=== PATIENT | male | born 1950 | race Caucasian/White ===

== ENCOUNTER → 2016-09-08 | Outpatient (CLI) | payer MEDICAID | LOC: FIMAGING 14:18 | PROVIDERS: ATTEND Internal Medicine Nephrology | DX: N28.1 Cyst of kidney, acquired (principal); I10 Essential (primary) hypertension ==

== ENCOUNTER 2018-04-08 10:39 | Observation (INO) | payer OTHER ==
[2018-04-08 11:02] LABS: PLATELET COUNT 296 10^3/uL (150-400)
--- NOTE | 2018-04-08 12:04 | EDPHY ---
H & P Stated Complaint: cp Time Seen by Provider: 04/08/18 11:24 HPI/ROS: CHIEF COMPLAINT: Chest pain HISTORY OF PRESENT ILLNESS: 68-year-old male with hypertension presents with chest pain and shortness of breath. Onset intermittent chest pain 6 weeks ago. He was seen at [facility] and had a high calcium score. Plan for stress test, not performed yet. Over the past week, he has had increasing exertional shortness of breath, associated with excessive fatigue. This morning he had exertional shortness of breath, associated with chest fullness and lightheadedness. The chest fullness lasted approximately 30 min and then completely resolved. He is currently asymptomatic. Took an aspirin today. REVIEW OF SYSTEMS: complete 10 point ROS reviewed and is negative except for the noted elements in the HPI - Personal History Current Tetanus Diphtheria and Acellular Pertussis (TDAP): Yes - Medical/Surgical History Hx Asthma: No Hx Chronic Respiratory Disease: No Hx Diabetes: No Hx Cardiac Disease: No Hx Renal Disease: No Hx Cirrhosis: No Hx Alcoholism: No Hx HIV/AIDS: No Hx Splenectomy or Spleen Trauma: No Other PMH: HTN - Social History Smoking Status: Never smoked Alcohol Use: Sober Drug Use: None - Physical Exam Exam: General Appearance: Alert, pleasant Eyes: Pupils equal and round, no conjunctival pallor or injection ENT, Mouth: Mucous membranes moist Neck: Normal inspection Respiratory: Lungs are clear to auscultation Cardiovascular: Regular rate and rhythm Gastrointestinal: Abdomen is soft and nontender Neurological: A&O, nonfocal exam Skin: Warm and dry, no rash Extremities: Nontender, no pedal edema Psychiatric: Mood and affect normal Constitutional: Initial Vital Signs Temperature (C) 36.8 C 04/08/18 11:01 Heart Rate 79 04/08/18 11:01 Respiratory Rate 16 04/08/18 11:01 Blood Pressure 164/94 H 04/08/18 11:01 O2 Sat (%) 93 04/08/18 11:01 O2 Delivery Mode Room Air Allergies/Adverse Reactions: No Known Drug Allergies Allergy (Verified 04/08/18 10:59) Home Medications: Medication Instructions Recorded Cholecalciferol Vit D3 [Vitamin D3 1,000 units PO DAILY 04/08/18 (*)] Sher[place]-3 Fatty Acids [Fish Oil 1000 2,000 mg PO DAILY 04/08/18 mg (*)] Valsartan/Hydrochlorothiazide 1 each PO DAILY 04/08/18 [Valsartan-Hctz 160-12.5 mg Tab] Apixaban [Eliquis] 5 mg PO BID 30 Days #60 tab 04/09/18 Apixaban [Eliquis] 10 mg PO BID 7 Days #14 tab 04/09/18 Medical Decision Making - Diagnostics EKG Interpretation: EKG interpreted by me reveals normal sinus rhythm, rate 79, low voltage in the anterior leads. Interpretation: Otherwise normal EKG Imaging Results: Chest x-ray independently reviewed by me reveals no acute disease. Imaging: I viewed and interpreted images myself ED Course/Re-evaluation: This patient presents with exertional shortness of breath and intermittent chest pain. Stat EKG reveals no evidence of ischemia or dysrhythmia and initial troponin is normal. Chest x-ray is unremarkable. Patient was asymptomatic throughout his emergency department stay. Given progressive symptoms suggestive of acute coronary syndrome, will admit for further cardiac evaluation. The hospitalist service was consulted for admission. Differential Diagnosis: Differential diagnosis includes though it is not limited to pneumonia, pneumothorax, pulmonary embolism, aortic dissection, pericarditis, acute coronary syndrome. - Data Points Laboratory Results: Laboratory Results 04/08/18 10:40 04/08/18 10:40 Medications Given: Discontinued Medications Acetaminophen (Tylenol) 650 mg PO Q4HRS PRN PRN Reason: Pain, Mild/Fever, Can Take PO Stop: 10/05/18 12:42 Last Admin: 04/08/18 22:28 Dose: 650 mg Enoxaparin Sodium (Lovenox) 100 mg SC BID [facility] Stop: 10/06/18 14:18 Last Admin: 04/09/18 15:35 Dose: 100 mg Hydrochlorothiazide (Microzide) 12.5 mg PO DAILY K[facility]LA Stop: 10/05/18 15:44 Last Admin: 04/09/18 08:59 Dose: 12.5 mg Valsartan (Diovan) 160 mg PO DAILY KARLA Stop: 10/05/18 15:44 Last Admin: 04/09/18 08:59 Dose: 160 mg Point of Care Test Results: Chemistry 04/08/18 10:54 POC Troponin I 0.01 ng/mL ng/mL (0.00-0.08) Departure - Departure Disposition: [facility] Inpatient Acute Clinical Impression: Chest pain Qualifiers: Chest pain type: precordial pain Qualified Code(s): R07.2 - Precordial pain Condition: Good
[2018-04-08] MEDS ORDERED: ACETAMINOPHEN 325 MG TAB PO PRN (12:43)
[2018-04-08] MEDS ORDERED: ONDANSETRON DISINTEGRATING 4 MG TAB PO PRN (12:43)
[2018-04-08] MEDS ORDERED: ONDANSETRON 4 MG/2 ML VIAL IVP PRN (12:43)
--- NOTE | 2018-04-08 13:27 | PDGENHP ---
<Ailin Queen - Last Filed: 04/08/18 13:53> History and Physical - Chief Complaint Chest pain, exertional shortness of breath - History of Present Illness This is a 68 y/o male with history of hypertension presenting with intermittent left sided chest pains and exertional shortness of breath. Onset was 6 weeks ago. Chest pain spontaneously comes and goes, doesn't matter whether he is at rest or exertional. Nothing alleviates it nor aggravates it. Chest pain is described as "heart beats hard" and on some occasions, would radiate to his left arm with a tingling sensation. He has also experienced left sided neck soreness after episodes. The maximum amount of time the chest pains last is 30 minutes. Last week, he noticed he has become short of breath with exertion such as climbing up stairs. Resting alleviates this. He feels weak and lightheaded during this time. Denies nausea, vomiting, diaphoresis. Mid-February 2018, He followed up with his PCP Dr. Peoples re: these conditions. He had an EBT heart scan performed which revealed a high calcium score of 875.24 (LMCA:0, LAD: 473.63, Cx: 172.12, RCA: 229.49) which places him in the 75th-90th percentile for men within in his age group. Dr. Peoples wanted a stress test performed and it was scheduled for last however last Sunday , the pt went to [facility] because he awoke with chest pains. Initial testing at the facility were unremarkable and was discharged home. The pt currently does not have active chest pain nor is short of breath. He is being admitted for observation and further diagnostic work-up. Past Medical/Surgical History 1. Hypertension 2. Right bicep tendon rupture 3. Left achilles tendon rupture Social 1. Gaitan 2. Denies smoking tobacco however as a child was around his stepfather who did. Stepfather young from myocardial infarction. 3. Drinks approximately 10 beers/week. Smokes cannabis 2-3x/week. 4. Diet consists of red meat and potatoes. History Information - Allergies/Home Medication List Allergies/Adverse Reactions: No Known Drug Allergies Allergy (Verified 04/08/18 10:59) Home Medications: Aspirin EC [Aspirin EC 81 mg (*)] 81 mg PO DAILY 04/08/18 [Last Taken 04/08/18 06:30 325mg] Cholecalciferol Vit D3 [Vitamin D3 (*)] 1,000 units PO DAILY 04/08/18 [Last Taken 04/07/18] Herbals/Supplements -Info Only 1 ea PO DAILY 04/08/18 [Last Taken Unknown] [place]-3 Fatty Acids [Fish Oil 1000 mg (*)] 2,000 mg PO DAILY 04/08/18 [Last Taken 04/07/18] Valsartan/Hydrochlorothiazide [Valsartan-Hctz 160-12.5 mg Tab] 1 each PO DAILY 04/08/18 [Last Taken 04/08/18 06:30] I have personally reviewed and updated: family history, medical history, social history, surgical history Past Medical History: See HPI list - Surgical History Additional surgical history: See HPI list - Family History Additional family history: HTN, alzheimer's, A-fib, diabetes - Social History Smoking Status: Never smoked Alcohol Use: Occasionally Drug Use: Marijuana Review of Systems Review of Systems: ROS: 10pt was reviewed & negative except for what was stated in HPI & below Constitutional: Reports: weakness EENMT: Reports: no symptoms Cardiac: Reports: chest pain, lightheadedness Respiratory: Reports: shortness of breath Gastrointestinal: Reports: no symptoms Genitourinary: Reports: no symptoms Muscolosketal: Reports: neck pain Skin: Reports: no symptoms Neurological: Reports: no symptoms Hematologic/Lymphatic: Reports: blood clots Immunologic/Allergy: Reports: no symptoms Physical Exam Physical Exam: Lab data and imaging reviewed Temp Pulse Resp BP Pulse Ox 36.8 C 79 16 129/85 H 95 04/08/18 11:01 04/08/18 12:46 04/08/18 12:46 04/08/18 12:46 04/08/18 12:46 Constitutional: no apparent distress, appears nourished, not in pain Eyes: PERRL, anicteric sclera, EOMI Ears, Nose, Mouth, Throat: moist mucous membranes, hearing normal, ears appear normal, no oral mucosal ulcers Cardiovascular: regular rate and rhythym, no murmur, rub, or gallop, No edema Peripheral Pulses: 2+: dorsalis-pedis (R) (Radial 2+), dorsalis-pedis (L) ( Radial 2+) Respiratory: no respiratory distress, no rales or rhonchi, clear to auscultation Gastrointestinal: normoactive bowel sounds, soft, non-tender abdomen, no palpable masses Genitourinary: no bladder fullness, no bladder tenderness Skin: warm, normal color, no rashes or abrasions, no fluctuance, no induration, other (Noted: 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 Not painful to touch. He is planning to get consultation on next steps for removal in May. He doesn't think this is cancerous.), No mottled Musculoskeletal: full muscle strength, no muscle tenderness, normal joint ROM, no joint effusions Neurologic: AAOx3, sensation intact bilaterally, CN II-XII Intact Psychiatric: interacting appropriately, not anxious, not encephalopathic, thought process linear Lymph, Heme, Immunologic: no cervical LAD, no supraclavicular LAD Lab Data & Imaging Review 04/08/18 10:40 04/08/18 10:40 WBC 5.87 10^3/uL (3.80-9.50) 04/08/18 10:40 RBC 5.54 10^6/uL (4.40-6.38) 04/08/18 10:40 Hgb 15.9 g/dL (13.7-17.5) 04/08/18 10:40 Hct 48.4 % (40.0-51.0) 04/08/18 10:40 MCV 87.4 fL (81.5-99.8) 04/08/18 10:40 MCH 28.7 pg (27.9-34.1) 04/08/18 10:40 MCHC 32.9 g/dL (32.4-36.7) 04/08/18 10:40 RDW 12.6 % (11.5-15.2) 04/08/18 10:40 Plt Count 296 10^3/uL (150-400) 04/08/18 10:40 MPV 9.7 fL (8.7-11.7) 04/08/18 10:40 Neut % (Auto) 63.7 % (39.3-74.2) 04/08/18 10:40 Lymph % (Auto) 26.2 % (15.0-45.0) 04/08/18 10:40 Rhea % (Auto) 7.7 % (4.5-13.0) 04/08/18 10:40 Eos % (Auto) 1.9 % (0.6-7.6) 04/08/18 10:40 Baso % (Auto) 0.3 % (0.3-1.7) 04/08/18 10:40 Nucleat RBC Rel Count 0.0 % (0.0-0.2) 04/08/18 10:40 Absolute Neuts (auto) 3.74 10^3/uL (1.70-6.50) 04/08/18 10:40 Absolute Lymphs (auto) 1.54 10^3/uL (1.00-3.00) 04/08/18 10:40 Absolute Monos (auto) 0.45 10^3/uL (0.30-0.80) 04/08/18 10:40 Absolute Eos (auto) 0.11 10^3/uL (0.03-0.40) 04/08/18 10:40 Absolute Basos (auto) 0.02 10^3/uL (0.02-0.10) 04/08/18 10:40 Absolute Nucleated RBC 0.00 10^3/uL (0-0.01) 04/08/18 10:40 Immature Gran % 0.2 % (0.0-1.1) 04/08/18 10:40 Immature Gran # 0.01 10^3/uL (0.00-0.10) 04/08/18 10:40 D-Dimer 0.58 ug/mLFEU (0.00-0.50) H 04/08/18 10:40 Sodium 140 mEq/L (135-145) 04/08/18 10:40 Potassium 4.0 mEq/L (3.5-5.2) 04/08/18 10:40 Chloride 104 mEq/L (97-110) 04/08/18 10:40 Carbon Dioxide 27 mEq/l (22-31) 04/08/18 10:40 Anion Gap 9 mEq/L (6-14) 04/08/18 10:40 BUN 17 mg/dL (7-23) 04/08/18 10:40 Creatinine 1.2 mg/dL (0.7-1.3) 04/08/18 10:40 Estimated GFR > 60 04/08/18 10:40 Glucose 112 mg/dL (70-100) H 04/08/18 10:40 Calcium 9.3 mg/dL (8.5-10.4) 04/08/18 10:40 POC Troponin I 0.01 ng/mL (0.00-0.08) 04/08/18 10:54 NT-Pro-B Natriuret Pep 116 pg/mL (0-125) 04/08/18 10:40 Assessment & Plan Plan: This is a 68 y/o male with history of hypertension presenting with 6 weeks worth of intermittent chest pains and exertional shortness of breath. Today he took ASA 325 mg and has no complaints of active chest pains or shortness of breath. EKG was sinus rhythm and CXR unremarkable. D-dimer mildly elevated ( 0.58), initial troponin negative (0.01) and BNP within normal range (116). 1. Chest pains: The pt receives a heart score of 6 (highly suspicious, his age is over 65 y/o, hx of atherosclerotic disease). He has a high calcium score. He was originally scheduled for a stress test outpatient. He is at higher risk for ACS d/t his weight, age, sedentary lifestyle, dietary choices, calcium score. -Cont tele monitoring -Cycle trops -EKG Q6H x 1, then PRN -Echo complete pending -Lipid panel tomorrow -Lexiscan tomorrow morning; d/t to his exertional shortness of breath, I do not believe he would be the best candidate for a treadmill stress test. He would not be able to complete the testing in its entirety. Avoid caffeine Q12H before testing. 2. Exertional shortness of breath: see above 3. Hypertension: stable. He may continue his home medications of HCTZ, valsartan Diet: Cardiac VTE ppx: SCDs Code: Full Dispo: Admit to obs <Inocencio Witt - Last Filed: 04/08/18 20:46> History and Physical - History of Present Illness Review of Systems Review of Systems: Physical Exam Physical Exam: Temp Pulse Resp BP Pulse Ox 36.7 C 87 18 143/78 H 94 04/08/18 15:38 04/08/18 15:38 04/08/18 15:38 04/08/18 15:38 04/08/18 15:38 Lab Data & Imaging Review 04/08/18 10:40 04/08/18 10:40 WBC 5.87 10^3/uL (3.80-9.50) 04/08/18 10:40 RBC 5.54 10^6/uL (4.40-6.38) 04/08/18 10:40 Hgb 15.9 g/dL (13.7-17.5) 04/08/18 10:40 Hct 48.4 % (40.0-51.0) 04/08/18 10:40 MCV 87.4 fL (81.5-99.8) 04/08/18 10:40 MCH 28.7 pg (27.9-34.1) 04/08/18 10:40 MCHC 32.9 g/dL (32.4-36.7) 04/08/18 10:40 RDW 12.6 % (11.5-15.2) 04/08/18 10:40 Plt Count 296 10^3/uL (150-400) 04/08/18 10:40 MPV 9.7 fL (8.7-11.7) 04/08/18 10:40 Neut % (Auto) 63.7 % (39.3-74.2) 04/08/18 10:40 Lymph % (Auto) 26.2 % (15.0-45.0) 04/08/18 10:40 Rhea % (Auto) 7.7 % (4.5-13.0) 04/08/18 10:40 Eos % (Auto) 1.9 % (0.6-7.6) 04/08/18 10:40 Baso % (Auto) 0.3 % (0.3-1.7) 04/08/18 10:40 Nucleat RBC Rel Count 0.0 % (0.0-0.2) 04/08/18 10:40 Absolute Neuts (auto) 3.74 10^3/uL (1.70-6.50) 04/08/18 10:40 Absolute Lymphs (auto) 1.54 10^3/uL (1.00-3.00) 04/08/18 10:40 Absolute Monos (auto) 0.45 10^3/uL (0.30-0.80) 04/08/18 10:40 Absolute Eos (auto) 0.11 10^3/uL (0.03-0.40) 04/08/18 10:40 Absolute Basos (auto) 0.02 10^3/uL (0.02-0.10) 04/08/18 10:40 Absolute Nucleated RBC 0.00 10^3/uL (0-0.01) 04/08/18 10:40 Immature Gran % 0.2 % (0.0-1.1) 04/08/18 10:40 Immature Gran # 0.01 10^3/uL (0.00-0.10) 04/08/18 10:40 D-Dimer 0.58 ug/mLFEU (0.00-0.50) H 04/08/18 10:40 Sodium 140 mEq/L (135-145) 04/08/18 10:40 Potassium 4.0 mEq/L (3.5-5.2) 04/08/18 10:40 Chloride 104 mEq/L (97-110) 04/08/18 10:40 Carbon Dioxide 27 mEq/l (22-31) 04/08/18 10:40 Anion Gap 9 mEq/L (6-14) 04/08/18 10:40 BUN 17 mg/dL (7-23) 04/08/18 10:40 Creatinine 1.2 mg/dL (0.7-1.3) 04/08/18 10:40 Estimated GFR > 60 04/08/18 10:40 Glucose 112 mg/dL (70-100) H 04/08/18 10:40 Calcium 9.3 mg/dL (8.5-10.4) 04/08/18 10:40 POC Troponin I 0.01 ng/mL (0.00-0.08) 04/08/18 10:54 Troponin I < 0.012 ng/mL (0.000-0.034) 04/08/18 10:40 NT-Pro-B Natriuret Pep 116 pg/mL (0-125) 04/08/18 10:40 Assessment & Plan Plan: Briefly, Mr. Jones is a 68 year old healthy male admitted with chest pain. ECG and troponins negative. He does have a elevated heart score. He denied any shortness of breath, new leg swelling or edema. 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 Plan to cycle troponins, Obtain lexiscan in am, and obtain lower extremity us to ensure no new DVT. Examination is essentially unremarkable. Other issues per HUMAN GEOGRAPHY INSTRUCTOR Green. Inocencio Witt MD
--- NOTE | 2018-04-08 15:40 | CPEKG ---
Test Reason : OPEN Blood Pressure : / mmHG Vent. Rate : 079 BPM Atrial Rate : 079 BPM P-R Int : 136 ms QRS Dur : 089 ms QT Int : 360 ms P-R-T Axes : 025 -02 023 degrees QTc Int : 413 ms Sinus rhythm Low voltage, precordial leads Confirmed by Nancy Noguera ([id number]) on 04/08/2018 3:39:39 PM Referred By: Confirmed By:Nancy Noguera
[2018-04-08] MEDS: VALSARTAN 160 MG TAB PO SCH (16:47)
[2018-04-08] MEDS: HYDROCHLOROTHIAZIDE 12.5 MG CAP PO SCH (16:47)
--- NOTE | 2018-04-08 17:09 | ECHO ---
[email or web address] [address] [address] Main: [phone] Fax: Transthoracic Echocardiogram Name: DAVID RICCI MR#: [id number] Study Date: 04/08/2018 Study Time: 03:56 PM Date of : 1950 Age: 68 year(s) Height: 182.9 cm (72 in.) Weight: 99.79 kg (220 lb.) BSA: 2.22 m2 Gender: Male Examination: Echo Indication: intermittent chest pain, Shortness of breath Image Quality: Technically Difficult Contrast: Requested by: Ailin Queen BP: 143 mmHg/78 mmHg Heart Rate: Rhythm: Indication: intermittent chest pain, Shortness of breath Procedure Staff Garment Form Assembler: Denae Kemp [facility] Reading Physician: Lex Ga MD Requesting Provider: Conclusions: Normal size left ventricle. Mild concentric LV hypertrophy. Normal global systolic LV function. EF is 61 %. No regional wall motion abnormality. Normal diastolic LV function. Normal RV function. The left atrium is normal in size. The right atrium is normal in size. Normal size aortic root measuring 3.2 cm. Normal size and course of the IVC. No pericardial effusion. Measurements: Chambers Valvular Assessment AV/MV Valvular Assessment TV/PV Normal Normal Normal Name Value Range Name Value Range Name Value Range Ao Kaity (MM): 3.2 cm (2.2 cm-3.7 AV Vmax: 1.10 m/s (1 m/s-1.7 PV Vmax: 0.63 m/s (0.6 m/s-0.9 cm) m/s) m/s) IVSd (2D): 1.0 cm (0.6 cm-1.1 AV maxP mmHg ( - ) PV PGmax: 2 mmHg ( - ) cm) LVOT Vmax: 0.69 m/s (0.7 m/s-1.1 LVDd (2D): 4.4 cm (4.2 cm-5.9 m/s) cm) SULEMA (Vmax): 2.4 cm2 ( - ) LVDs (2D): 2.9 cm (2.1 cm-4 MV E Vmax: 0.82 m/s ( - ) cm) MV A Vmax: 0.35 m/s ( - ) LVPWd (2D): 1.0 cm (0.6 cm-1 MV E/A: 2.34 ( - ) cm) LVOTd 2.2 cm 2.2 cm mm LVEF (BP): 61 % (>=55 %) RVDd(2D): 3.3 cm (1.9 cm-3.8 cmmm) Patient: DAVID RICCI Study Date: 04/08/2018 Page 1 of 2 03:56 PM Continued Measurements: Chambers Valvular Assessment AV/MV Name Value Name Value LADs: 3.4 cm MV DecTime: 208 m/s LADs Lon.2 cm MV E' Septal: 0.08 m/s LA Area: 19.9 cm2 MV E/E' Septal: 10.70 LA Volume: 56 ml MV E/E' Lateral: 7.50 LA Volume Index: 25.2 ml/m2 TAPSE: 2.1 cm RA Area: 16.2 cm2 Findings: Left Ventricle: Normal size left ventricle. Mild concentric LV hypertrophy. Normal global systolic LV function. EF is 61 %. No regional wall motion abnormality. Normal diastolic LV function. Right Ventricle: Normal size right ventricle. Normal RV function. Left Atrium: The left atrium is normal in size. Right Atrium: The right atrium is normal in size. Mitral Valve: The mitral valve is normal in appearance and function. Trivial mitral valve regurgitation. No mitral stenosis is present. Aortic Valve: The aortic valve is tri-leaflet. Trivial aortic valve regurgitation. No aortic valve stenosis is present. Tricuspid Valve: The tricuspid valve appears normal. Trivial tricuspid valve regurgitation. Pulmonary artery pressure is not obtained due to inadequate TR jet. Pulmonic Valve: Pulmonary valve not well visualized. Aorta: Normal size aortic root measuring 3.2 cm. IVC: Normal size and course of the IVC. Pericardium: No pericardial effusion. (No Signature Object) Patient: DAVID RICCI Study Date: 04/08/2018 Page 2 of 2 03:56 PM [id number]
[2018-04-09] MEDS: HYDROCHLOROTHIAZIDE 12.5 MG CAP PO SCH (08:59)
[2018-04-09] MEDS: VALSARTAN 160 MG TAB PO SCH (08:59)
[2018-04-09] MEDS ORDERED: REGADENOSON 0.4 MG/5 ML SYR IVP ONE (10:32)
[2018-04-09 12:25] VITALS: BP 120/82
--- NOTE | 2018-04-09 12:35 | CPR ---
DATE OF PROCEDURE: 04/09/2018 PROCEDURE: Lexiscan nuclear stress test. SUPERVISING PHYSICIAN: Eddie Peoples MD. ORDERING PHYSICIAN: REASON FOR TEST: Chest pain. Resting EKG shows a regular sinus rhythm with a rate of 70. Blood pressure 120/80. Oxygen saturatio n 95%. He is asymptomatic. Stress portion: Lexiscan nuclear stress test. Lexiscan was injected rapidly followed by saline flush. Cardiolite was then injected followed by maggy ine flush, he did have mild increase in breathing. No EKG changes. Blood pressure 161/74. Peak hea rt rate 116, oxygen saturation 96%. There were no EKG changes during this portion. Recovery: He did spontaneously recover, blood pressure returning to baseline 122/80, oxygen saturation 96%, hea rt rate 99. He did have a mild headache. Caffeine was given. There were no EKG changes. At this t [facility], he currently is stable for nuclear imaging. /[id number]/MODL
[2018-04-09] MEDS ORDERED: IOPAMIDOL (ISOVUE 370) 100 ML BTL IV ONE (13:33)
[2018-04-09] MEDS ORDERED: ENOXAPARIN 100 MG/ML SYR SC SCH (14:19)
--- NOTE | 2018-04-09 15:43 | ASDISCHSUM ---
Discharge Information Plan Status:Home with No Needs Medically Cleared to Leave:04/08/2018 Discharge Date:04/08/2018 CM D/C Disposition:Home, Routine, Self-Care ADT D/C Disposition:Home, Routine, Self-Care Projected Discharge Date:04/08/2018 Transportation at D/C: Discharge Delay Reason: Follow-Up Date:04/08/2018 Discharge Slot: Final Diagnosis: Placement Information Patient Contact Information Contact Name:OANH Relationship:Lux Address:[address] [facility] City:[place] Alternate Phone: [facility]/Zip Code:[place] [address] Email: Financial Information Financial Class:Medicare Advantage Plans Primary Plan Desc:[facility] ADVANTAGE PLANS Primary Plan Number:[id number] Secondary Plan Desc: Secondary Plan Number: Assessment Information LACE LACE Length of stay for Answers: 1 day current admission Acuity / Level of Answers: No Care: Did the patient have an inpatient admission? Comorbidities - select Answers: Other Notes: HTN all that apply # of Emergency department Answers: 1-2 visits in the last 6 months Score: 3 Date Signed: 04/09/2018 03:42 PM Electronically Signed By:Hermila Tan RN Intervention Information
--- NOTE | 2018-04-09 17:24 | HOSPPROG ---
Hospitalist Progress Note Assessment/Plan: This is a 68 y/o male with history of hypertension presenting with 6 weeks worth of intermittent chest pains and exertional shortness of breath. Today he took ASA 325 mg and has no complaints of active chest pains or shortness of breath. EKG was sinus rhythm and CXR unremarkable. D-dimer mildly elevated ( 0.58), initial troponin negative (0.01) and BNP within normal range (116). 1. Chest pains: The pt receives a heart score of 6 (highly suspicious, his age is over 65 y/o, hx of atherosclerotic disease). He has a high calcium score. He was originally scheduled for a stress test outpatient. He is at higher risk for ACS d/t his weight, age, sedentary lifestyle, dietary choices, calcium score. -Cont tele monitoring -Cycle trops -EKG Q6H x 1, then PRN -Echo complete pending -Lipid panel wnl -Lexiscan tomorrow morning; d/t to his exertional shortness of breath, I do not believe he would be the best candidate for a treadmill stress test. He would not be able to complete the testing in its entirety. Avoid caffeine Q12H before testing. 2. Exertional shortness of breath: see above 3. Hypertension: stable. He may continue his home medications of HCTZ, valsartan Diet: Cardiac VTE ppx: SCDs Code: Full Dispo: Admit to obs Subjective: no complaints Objective: Vital Signs Temp Pulse Resp BP Pulse Ox 36.5 C 72 18 120/82 H 95 04/09/18 12:00 04/09/18 16:00 04/09/18 16:00 04/09/18 12:00 04/09/18 16:00 Laboratory Results 04/09/18 02:15 04/09/18 02:15 04/08/18 04/09/18 04/10/18 05:59 05:59 05:59 Intake Total 1000 Balance 1000 - Physical Exam Constitutional: no apparent distress, appears nourished, not in pain Eyes: PERRL, anicteric sclera, EOMI Ears, Nose, Mouth, Throat: moist mucous membranes, hearing normal, ears appear normal, no oral mucosal ulcers Cardiovascular: regular rate and rhythym, no murmur, rub, or gallop Respiratory: no respiratory distress, no rales or rhonchi, clear to auscultation Gastrointestinal: normoactive bowel sounds, soft, non-tender abdomen, no palpable masses Genitourinary: no bladder fullness, no bladder tenderness, no renal bruits Skin: no rashes or abrasions, no fluctuance, no induration Musculoskeletal: full muscle strength, no muscle tenderness, normal joint ROM Neurologic: AAOx3, sensation intact bilaterally Psychiatric: interacting appropriately, not anxious, not encephalopathic, thought process linear Lymph, Heme, Immunologic: no cervical LAD, no supraclavicular LAD ICD10 Worksheet Patient Problems: Problems Problem Status Onset Chest pain Acute - ICD10 Problem Qualifiers (1) Chest pain
--- NOTE | 2018-04-09 17:27 | PDDCSUM ---
Discharge Summary Discharge Summary: Javi Jones is a 68-year-old man with past medical history of hypertension who presented with chest pain. Troponins were negative and EKG was nonischemic. An echocardiogram was ordered. A Lexiscan stress test was ordered as well. The echocardiogram showed a normal left ventricular ejection fraction and otherwise was essentially normal. The stress test showed no inducible ischemia and no wall motion abnormalities. A CTA was obtained to rule out the PE which did show a subsegmental pulmonary embolus. Patient had no evidence of heart strain, and requiring no oxygen. His chest pain had resolved. He was started on Lovenox bridge with Eliquis for discharge. He was instructed to follow up with his primary care physician in the next 1-2 weeks. Discharge diagnosis Chest pain Hypertension Pulmonary embolism Discharge medications Eliquis 10 mg twice daily x7 days Eliquis 5 mg twice daily I spent over 35 min on discussions with patient and family along with discharge planning and arranging follow-up.
[2018-04-09] MEDS ORDERED: CHOLECALCIFEROL VIT D3 1,000 UNITS TAB PO SCH (21:00)
[2018-04-09] MEDS ORDERED: Herbals/Supplements -Info Only PO SCH (21:00)
[2018-04-09] MEDS ORDERED: ASPIRIN EC 81 MG TAB PO SCH (21:00)
== END 2018-04-09 17:15 | disposition home or self-care (01) ==
LOC: EDUNIT# → F2W 15:29
PROVIDERS: ADMIT Internal Medicine; ATTEND Internal Medicine
DX: I26.99 Other pulmonary embolism without acute cor pulmonale (principal); R07.89 Other chest pain; I10 Essential (primary) hypertension
CPT/HCPCS: 71046; 71275; 78452; 93005; 93017; 93306; 93970; 99285; A9500; G0378; J1650; J2785; Q9967; 84484-ER

== ENCOUNTER → 2018-06-26 | Outpatient (CLI) | payer OTHER | LOC: FCPNEURO 07:54 | PROVIDERS: ATTEND Student in an Organized Health Care Education/Training Program | DX: G47.33 Obstructive sleep apnea (adult) (pediatric) (principal) ==